=== PATIENT | male | born 1965 | race Caucasian/White ===

== ENCOUNTER → 2018-07-25 15:48 | Outpatient (CLI) | payer MEDICARE, SELFPAY ==
--- NOTE | 2018-07-25 | IMM_PTH ---
PATIENT: KRYSTLE SAMSON LOC: [facility] U#:[id number] AGE/SX: 59/M ROOM: RE07/25/[address]: Dr. Ky Mendosa MD : 1965 BED: DIS: SPEC #: [id number] RECD: 07/29/18 11:36 STATUS: JOHAN NIEOT #: [id number] RACHEAL: 07/25/18 00:[address]: Ky Mendosa DEPT: IMMUNOHISTOCHEMISTRY RECD BY: Rubia Chandler ENTERED: 07/29/18 11:36 SP TYPE: IMMUNO OTHR DR: Dr. Victor Hugo Pena MD Tissues: Stomach, NOS Procedures: H Pylori (initial) PHYSICIAN & INSTITUTION [place] [id number] SPECIMEN INFORMATION: Tissue Source: Gastric antrum/body biopsy Clinical Info: GERD Specimen Number: [id number] CPT code: 84572 METHODOLOGY: Deparaffinized sections of prefer/formalin-fixed tissue or PAP/DQ stained slides are incubated with monoclonal/polyclonal antibodies/oligonucleotide probes. Localization is made via biotin free immunoperoxidase method. Appropriate controls are performed and reacted as expected. Results on target cell population are indicated in the following table: RESULTS: ANTIBODY / CLONE RESULT H Pylori (polyclonal) negative These tests were developed and their performance characteristics determined by [facility]. They may not have been cleared or approved by the U.S. Food and Drug Administration. The FDA has determined that such clearance or approval is not necessary. INTERPRETATION: Gastric antrum/body, biopsy: Negative for Helicobacter pylori organisms. AM:ojzef 07/29/18
--- NOTE | 2018-07-25 07:59 | GASB_PTH ---
PATIENT: KRYSTLE SAMSON LOC: [facility] U#:[id number] AGE/SX: 59/M ROOM: RE07/25/[address]: Dr. Ky Mendosa MD : 1965 BED: DIS: SPEC #: [id number] RECD: 07/25/18 15:38 STATUS: JOHAN NIETO #: [id number] RACHEAL: 07/25/18 07:[address]: Ky Mendosa DEPT: SURGICAL PATHOLOGY RECD BY: Noe Quintana ENTERED: 07/28/18 11:36 SP TYPE: Gastric Bx OTHR DR: Dr. Victor Hugo Pena MD [facility] Tissues: Gastric mucous membrane Procedures: Surgery Specimen Level IV HEADER OPERATION: EGD with biopsies PRE-OP DIAGNOSIS: GERD TISSUE SUBMITTED: Gastric antrum and body biopsies, rule out gastritis MICROSCOPIC DIAGNOSIS Gastric antrum and body, biopsy: Mild chronic gastritis. See comment. AM:jozef 07/29/18 COMMENT Rare eosinophils are seen in glandular crypts. The significance of this is uncertain. The results of immunohistochemistry for Helicobacter pylori will be reported separately ([id number]). Case has been reviewed in consultation with Dr. Rosenthal who concurs with the above diagnosis. IDC:CE MICROSCOPIC DESCRIPTION Slides are reviewed. GROSS DESCRIPTION Received in fixative is one container labeled with the patient's name and designated gastric antrum. The specimen consists of two irregular fragments of light kaba soft tissue that in aggregate measure 0.5 x 0.5 x 0.1 cm. The specimen is totally submitted in one cassette. / AM:jozef 07/28/18 TC:3 CPT: 00195
== END ==
PROVIDERS: Family Provider Family Medicine; PCP Family Medicine; Referring Provider Internal Medicine Gastroenterology; Visit Provider Internal Medicine Gastroenterology
DX: K21.9 Gastro-esophageal reflux disease without esophagitis (principal)
CPT/HCPCS: 88305; 88342

== ENCOUNTER 2020-01-13 21:36 | Emergency (ER) | payer MEDICARE, SELFPAY ==
[2020-01-13 21:38] VITALS: PULSE 87; RESP 16; TEMP 36.7; O2SAT 98; BMI 40.1
--- NOTE | 2020-01-13 21:40 | CT_ITS ---
STUDY: CT BRAIN WITHOUT CONTRAST REASON FOR EXAM: Male, 54 years old. FOUND IN MIDDLE OF THE ROAD AFTER DRINKING 1 BOTTLE OF VODKA RADIATION DOSAGE (If Supplied By Facility): CTDIvol = ( 44.99 ) mGy, DLP = ( 729.24 ) mGycm TECHNIQUE: Transaxial CT imaging of the brain was performed without administration of intravenous contrast material. Individualized dose optimization techniques were used for this CT. COMPARISON: No relevant priors. FINDINGS: Normal soft tissue structures. Normal calvarium. Normal size ventricles and extra-axial spaces for the patient''s age. Normal white matter tracts of the cerebral hemispheres. Normal basal ganglia and thalami. Normal brainstem. Normal cerebellum. There is no intracranial hemorrhage. There are no findings of an acute ischemic infarction. Normal visualized paranasal sinuses. CT/Brain/Head without Contrast IMPRESSION: No acute intracranial process. Electronically Signed: Myra Daniels MD at 22:16 EDT Tel , Service support ,
--- NOTE | 2020-01-13 21:40 | CT_ITS ---
STUDY: CT CERVICAL SPINE WITHOUT CONTRAST REASON FOR EXAM: Male, 54 years old. FOUND IN MIDDLE OF THE ROAD AFTER DRINKING 1 BOTTLE OF VODKA RADIATION DOSAGE (If Supplied By Facility): CTDIvol = ( 29.61 ) mGy, DLP = ( 615.52 ) mGycm TECHNIQUE: High resolution transaxial imaging was performed without contrast material. Sagittal and coronal images were reconstructed. Individualized dose optimization techniques were used for this CT. COMPARISON: None FINDINGS: Motion artifact degrades anatomic detail. Normal craniovertebral junction. There are degenerative changes of the anterior atlantoaxial articulation. Normal odontoid process. There is straightening of the normal cervical lordosis. There is multilevel facet hypertrophy. C2-3: Normal endplates. Normal disc height and morphology. Normal central canal and intervertebral neuroforamina. C3-4: There is a posterior disc osteophyte and facet hypertrophy associated with narrowing of the left intervertebral neuroforamina. C4-5: There is a posterior disc osteophyte facet hypertrophy associated with stenosis of the central canal and narrowing of the right intervertebral neuroforamina. C5-6: There is a posterior disc osteophyte facet hypertrophy associated with stenosis of the central canal and bilateral narrowing of the intervertebral neuroforamina. C6-7: There is a posterior disc osteophyte and facet hypertrophy associated with stenosis of the central canal and narrowing of the left intervertebral neuroforamina. C7-T1: Normal endplates. Normal disc height and morphology. Normal central canal and intervertebral neuroforamina. Normal visualized soft tissue structures. CT/Spine Cervical without Contras IMPRESSION: Multilevel degenerative changes, as described above. Electronically Signed: Myra Daniels MD at 22:14 EDT Tel , Service support ,
--- NOTE | 2020-01-13 21:41 | ED.VIS.GEN ---
History of Present Illness Chief Complaint: Fall Informant: Patient, Family Assistant Onset: Today Narrative: Patient presents with EMS after a fall. Patient appears intoxicated admits to drinking a bottle of vodka today. EMS [place] Apparently some neighbors saw him fall and called EMS. Patient can answer some questions but does seem confused. He has no complaints for me on arrival to the emergency room. He is unable to tell me why he is in the emergency room. Past Medical History - Allergies and Home Meds Allergies/Adverse Reactions: Allergies No Known Allergies Allergy (Verified 01/13/20 21:43) Primary Care Physician: Victor Hugo Pena MD [Primary Care Provider] - Prior records reviewed: Yes Alcohol: Heavy Review of Systems General: Denies: Chills, Fever Eyes: Denies: Visual changes - bilaterally ENT: Denies: Bilateral ear pain Cardiovascular: Denies: Chest pain Respiratory: Denies: Dyspnea, Cough Gastrointestinal: Denies: Abdominal pain, Vomiting Musculoskeletal: Denies: Extremity Pain Neurological: Denies: Headache Physical Exam Vital Signs/Narrative: Vital Signs Temp Pulse Resp Pulse Ox 01/13/20 21:38 98.1 F 87 16 98 Inital Vital Signs reviewed: Yes General: Well nourished, Well developed Head: Normocephalic, - - Facial abrasions to the nasal bridge and left upper lip. He is a adentulous over the maxilla. Mandibular teeth are stable. ENT: Moist mucous membranes Neck: Supple Cardiovascular: Regular rate, Regular rhythm Respiratory: No distress, CTA bilaterally Abdomen: Soft, Nontender Skin: - - Facial abrasions as noted above Neurological: Alert, - - Patient knows his name and birthdate. He cannot tell me Social Security number or his address. He is moving all 4 extremities.. Negative for: Oriented x3 Psychological: Normal affect Diagnostic/Tx/Re-eval Impressions Brain CT 01/13/20 21:40 IMPRESSION: No acute intracranial process. Electronically Signed: Myra Daniels MD at 22:16 EDT Tel , Service support , Cervical Spine CT 01/13/20 21:40 IMPRESSION: Multilevel degenerative changes, as described above. Electronically Signed: Myra Daniels MD at 22:14 EDT Tel , Service support , 01/13/20 21:40 Brain/Head without Contrast [CT] Stat CT Cervical [Spine Cervical without Contras] [CT] Stat Laboratory Results 01/13/20 01/13/20 01/13/20 22:25 22:25 22:25 WBC 6.3 RBC 4.52 L Hgb 13.6 Hct 41.1 MCV 90.9 MCH 30.1 MCHC 33.1 RDW Std Deviation 42.3 RDW Coeff of Deshaun 12.9 Plt Count 186 MPV 10.1 Immature Gran % (Auto) 0.300 Neut % (Auto) 55.0 Lymph % (Auto) 33.9 [place] % (Auto) 8.4 Eos % (Auto) 1.9 Baso % (Auto) 0.5 Absolute Neuts (auto) 3.5 Absolute Lymphs (auto) 2.14 Nucleated RBC % 0 Sodium 142 Potassium 4.5 Chloride 107 Carbon Dioxide 27.0 Anion Gap 8 BUN 18 Creatinine 1.17 Estim Creat Clear Calc 71.34 Est GFR (MDRD) Af Amer 83 Est GFR (MDRD) Non-Af 69 BUN/Creatinine Ratio 15.4 Glucose 100 Calcium 8.6 Ethyl Alcohol 353.0 H* - Medical Decision Making Patient is observed on cardiac catheterization technologist. Facial wounds are cleansed. Once patient is clinically sober enough to be stable on his feet he will be discharged home with his ex- who is here at bedside. He will be signed out to oncoming physician for further observation. ED Disposition - Plan for ED Patient: Disposition: Home or Assisted Living Diagnosis: Fall, Alcohol intoxication Instructions: ED INTOXICATION Alcohol Referrals: Victor Hugo Pena MD [Primary Care Provider] - [facility] [STAFF PHYSICIAN] -
[2020-01-13 22:33] LABS: Absolute Lymphocyte Count 2.14 X10^3/uL (0.83-4.51); Absolute Neutrophil Count 3.5 X10^3/uL (2.0-7.7); Basophil# 0.03 X10^3/uL; Basophil% 0.5 % (0-1); Eosinophil# 0.12 X10^3/uL; Eosinophils% 1.9 % (0-5); Hematocrit 41.1 % (40-54); Hemoglobin 13.6 g/dL (13.0-16.5); Lymphocyte # 2.14 X10^3/ul (4.0); Lymphocyte % 33.9 % (19-41); Mean Corp Hgb Conc 33.1 g/dL (32-36); Mean Corpuscular Hgb 30.1 pg (27.0-32.0); Mean Corpuscular Volume 90.9 fL (80-94); Mean Platelet Vol. 10.1 fl (6.2-12.0); Monocyte# 0.53 X10^3/uL; Monocyte% 8.4 % (0-10); NRBC Flagged by Analyzer 0 % (0-5); Neutrophil # 3.47 X10^3/uL (2.7-7.7); Platelet Count 186 K/mm3 (150-450); RBC Distribution Width CV 12.9 % (11.6-14.6); RBC Distribution Width SD 42.3 fl (35.1-43.9); Red Blood Count 4.52 M/mm3 (4.6-6.2); White Blood Count 6.3 K/mm3 (4.4-11.0)
[2020-01-13 22:47] LABS: Anion Gap 8 (5-15); BUN 18 mg/dL (7-18); BUN/Creat Ratio 15.4 RATIO (10-20); Calcium,Total 8.6 mg/dL (8.5-10.1); Chloride 107 mmol/L (98-107); Creatinine, Serum 1.17 mg/dL (0.70-1.30); EST Glomerular Filtration Rate 69 mL/min (>60); Est Glom Filt Rate - Afr Amer 83 mL/min (>60); Estimated Creatinine Clearance 71.34 ml/min; Glucose 100 mg/dL (74-106); Potassium 4.5 mmol/L (3.5-5.1); Sodium Level 142 mmol/L (136-145)
[2020-01-14 00:58] VITALS: BP 136/89; PULSE 81; RESP 16; O2SAT 95
== END 2020-01-14 00:59 | disposition home or self-care (01) ==
PROVIDERS: Emergency Provider Emergency Medicine; PCP Family Medicine
DX: F10.129 Alcohol abuse with intoxication, unspecified (principal); S00.31XA Abrasion of nose, initial encounter; S00.511A Abrasion of lip, initial encounter; W19.XXXA Unspecified fall, initial encounter; Y93.9 Activity, unspecified; Y92.488 Other paved roadways as the place of occurrence of the external cause; Y99.9 Unspecified external cause status
CPT/HCPCS: 70450; 72125; 80048; 80320; 85025; 99285; A4216; G0480

== ENCOUNTER → 2020-03-24 11:05 | Outpatient (CLI) | payer MEDICARE, SELFPAY ==
--- NOTE | 2020-03-24 11:20 | EKG12_ITS ---
Test Reason : PRE OP Blood Pressure : / mmHG Vent. Rate : 091 BPM Atrial Rate : 091 BPM P-R Int : 140 ms QRS Dur : 102 ms QT Int : 382 ms P-R-T Axes : 046 -38 033 degrees QTc Int : 469 ms Normal sinus rhythm Left axis deviation Nonspecific ST and T wave abnormality Prolonged QT Abnormal ECG Confirmed by SETH KOO, ADILIA ([id number]), deputy editor in chief REGLA MEREDITH ([id number]) on 03/29/2020 8:06:18 AM Referred By: Almita Vincent Confirmed By:KEYSHA ANN MD
[2020-03-24 11:36] LABS: Absolute Lymphocyte Count 1.71 X10^3/uL (0.83-4.51); Absolute Neutrophil Count 4.2 X10^3/uL (2.0-7.7); Basophil# 0.02 X10^3/uL; Basophil% 0.3 % (0-1); Eosinophil# 0.13 X10^3/uL; Hematocrit 38.7 % (40-54); Hemoglobin 13.3 g/dL (13.0-16.5); Lymphocyte # 1.71 X10^3/ul (4.0); Lymphocyte % 25.8 % (19-41); Mean Corp Hgb Conc 34.4 g/dL (32-36); Mean Corpuscular Hgb 30.5 pg (27.0-32.0); Mean Corpuscular Volume 88.8 fL (80-94); Mean Platelet Vol. 10.7 fl (6.2-12.0); Monocyte# 0.51 X10^3/uL; Monocyte% 7.7 % (0-10); NRBC Flagged by Analyzer 0 % (0-5); Neutrophil # 4.24 X10^3/uL (2.7-7.7); Neutrophil % 63.7 % (47-70); Platelet Count 181 K/mm3 (150-450); RBC Distribution Width CV 12.4 % (11.6-14.6); RBC Distribution Width SD 40.6 fl (35.1-43.9); Red Blood Count 4.36 M/mm3 (4.6-6.2); White Blood Count 6.6 K/mm3 (4.4-11.0)
[2020-03-24 12:07] LABS: Anion Gap 3 (5-15); BUN 14 mg/dL (7-18); BUN/Creat Ratio 13.1 RATIO (10-20); Calcium,Total 8.7 mg/dL (8.5-10.1); Chloride 109 mmol/L (98-107); Creatinine, Serum 1.07 mg/dL (0.70-1.30); EST Glomerular Filtration Rate 76 mL/min (>60); Est Glom Filt Rate - Afr Amer 92 mL/min (>60); Glucose 115 mg/dL (74-106); Potassium 3.6 mmol/L (3.5-5.1); Sodium Level 140 mmol/L (136-145)
== END ==
PROVIDERS: PCP Family Medicine; Referring Provider Registered Nurse; Visit Provider Registered Nurse
DX: Z11.59 Encounter for screening for other viral diseases (principal)
CPT/HCPCS: 36415; 80048; 85025; 87635; 93005; C9803; U0003

== ENCOUNTER 2021-06-01 06:20 | Day surgery (SDC) | payer MEDICARE, SELFPAY ==
[2021-06-01 06:40] VITALS: BP 139/88; PULSE 82; RESP 18; TEMP 35.8; O2SAT 100; BMI 38.3
[2021-06-01] MEDS: Lactated Ringers 1,000 ML 15 ML IV (06:52)
--- NOTE | 2021-06-01 07:25 | PCM.HP.BLA ---
History and Physical Date of Admission: 06/01/21 Date of Service: 05/18/21 MR#:[id number]:[id number]: KRYSTLE SAMSON #:[id number]:1965 Provider:Dr. Paul Scott MDAge/Sex: 55/M [facility] Vital Signs 05/18/21 13:40 Height 5 ft 9 in Weight: 260 lb 4 oz BMI 38.4 BP 155/89 H Blood Pressure Location Rt brachial Position Sitting Respiration 18 Pulse 90 Pulse Source NIBP Temp 98.7 F Temp Source Temporal Pulse Oximetry (%) 98 Oxygen Delivery Method room air Intake Visit Reasons: Discuss upper/lower scope Chief Complaint: discuss EGD/ c-scope Gas Station Manager Required: No Is patient in pain?: No Allergies No Known Allergies Allergy (Verified 05/18/21 13:41) Medications amlodipine 10 mg tablet tablet PO 05/18/21 [History Confirmed 05/18/21] famotidine 20 mg tablet 20 mg PO DAILY PRN 05/18/21 [History Confirmed 05/18/21] levothyroxine 100 mcg tablet tablet PO 05/18/21 [History Confirmed 05/18/21] lorazepam 0.5 mg tablet 0.5 mg PO QHS tab 05/18/21 [History Confirmed 05/18/21] losartan 100 mg tablet 100 mg PO BID tab 05/18/21 [History Confirmed 05/18/21] losartan 25 mg tablet ea PO 05/18/21 [History Confirmed 05/18/21] meloxicam 15 mg tablet ea PO 05/18/21 [History Confirmed 05/18/21] rosuvastatin 5 mg tablet ea PO 05/18/21 [History Confirmed 05/18/21] trazodone 50 mg tablet tablet PO 05/18/21 [History Confirmed 05/18/21] zolpidem 5 mg tablet tablet PO 05/18/21 [History Confirmed 05/18/21] PFS Medical History (Updated 05/18/21 @ 15:[address] Paul Scott MD) Anxiety and depression Back pain Bipolar 1 disorder Diverticulosis DVT (deep venous thrombosis) GERD (gastroesophageal reflux disease) Hemorrhoid Hiatal hernia History of gout HTN (hypertension) Hyperlipidemia Hypothyroidism Osteoarthritis Surgical History (Updated 05/18/21 @ 13:43 by Nadya Aguayo) History of ankle surgery History of colonoscopy (~2019) History of esophagogastroduodenoscopy (EGD) History of shoulder surgery Family History (Updated 05/18/21 @ 13:36 by Nadya Aguayo) Father Colon cancer Cancer skin Diabetes Social History (Updated 05/18/21 @ 13:36 by Nadya Aguayo) Smoking Status: Former smoker HPI HPI HPI: KRYSTLE SAMSON, is a 55 M who presents to the office today for need to schedule diagnostic EGD and colonoscopy secondary to personal history of gastroesophageal reflux disease, possible Estrada's esophagus, personal history of colon polyps, and a familial history of colon cancer. Patient has had prior colonoscopy the date of this is in some dispute as records show Dr. Mendosa scope the patient in August 2018 but Mr. Samson is adamant that it has been at least 5 years. He states that a EGD and colonoscopy were done at separate times but within the same year. The results of prior scope were: Diverticulosis and small internal hemorrhoids but no polyps. Recommended interval for follow-up was 5 years. Patient has no personal history of colon cancer, inflammatory bowel disease, or diverticulitis. They describe their bowel habits as fairly regular occurring every other day. Patient states that he takes a stool softener every other day and if he is struggling to have a bowel movement we will add a suppository. They have spend roughly 10 minutes on the toilet with only occasional significant straining. They do not regularly take fiber supplements (patient details that he used to take fiber supplements but found no benefit because he has a difficult time taking adequate fluid as he does not feel the physical need to drink. Patient has a family history of colon cancer in his father. The patient's weight is stable. Patient has a history of hemorrhoid surgery approximately 10 years ago where the hemorrhoids were stapled. His only other abdominal surgery was an appendectomy in 2011. Regarding his history of GERD, Mr. Samson states that he has made lifestyle modifications to include eating smaller meals and taking famotidine around the time that he eats a known food triggers such as tomato sauce. However, he has not excluded any foods outright. He states he previously was on omeprazole and a generic form of Protonix (prior to this he states he was on lots of Tums and baking soda), but does not take anything regularly because he is not a medicine kailey. He continues to experience frequent bouts of heartburn and this is particularly problematic when he lies flat. He feels a burning sensation and then a deepening of his voice. He was diagnosed with gastroesophageal reflux disease at age 15 when he recalls first noticing blood with vomiting. At that time he believes he was told he had Estrada's esophagitis but denies any recurrent surveillance. He states that it is now been 1 year since he noticed any such blood with vomiting. ROS General General: Yes weight change; No appetite, fatigue, colon cancer, breast cancer or weakness HEENT HEENT: No difficulty swallowing, eye injury, eye surgery, swollen glands or hoarseness Endo Endocrine: No thyroid disease, diabetes mellitus, thyroid cancer, Hair loss, heat intolerance or cold intolerance Musc Musculoskeletal: Yes back problems, arthritis and gout; No rheumatoid arthritis or joint pain Cardio Cardiovascular: Yes high blood pressure; No murmur, pacemaker, heart disease, atrial fibrillation, heart attack, heart stent, palpitations, shortness of breat with exertion or chest pain Psych Psychiatric: Yes depression and anxiety; No hearing voices Resp Respiratory: No shortness of breath, No sleep apnea, No cough, No COPD, No asthma, No emphysema and No wheezing Gastro Gastrointestinal: No abdominal pain, Yes nausea or vomiting, Yes diarrhea, Yes constipation, No blood in stool, Yes acid reflux, Yes hemorrhoids, No ulcers, No gallbladder problem and No black,tarry stools [place] Hematologic: No blood thinners, No blood disorders, No bleeding, No anemia and Yes blood clots Neuro Neurologic: No weakness Exam Const General: cooperative and anxious Orientation: alert, awake and oriented x3 Resp Effort & Inspection: normal respiratory effort Auscultation: no rales, no rhonchi and no wheezes Cardio Rate: regular rate Rhythm: regular rhythm Heart Sounds: S1 normal and S2 normal GI Inspection: obesity and striae Palpation: soft, no hernias and nontender Extrem Other: Numerous well?healed cuts across dorsal aspect of left forearm Assessment and Plan Assessment and Plan (1) Colorectal polyps: Status: Acute Comment: Is a 55-year-old male with a personal and family history of colon polyps and colon cancer, respectively. He believes that he is due for a 5-year interval surveillance colonoscopy. 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 Still patient describes occasional dark stools and with his family history (father) of colon cancer it would be best to err on the side of repeating this investigation. Plan - Dr. Paul Scott MD: Plan for repeat colonoscopy under local MAC on first mutually available date with a 2?day prep (as patient and his spouse gives a history of difficulty with prior prep). (2) Family history of colon cancer in father: Status: Acute Comment: 55-year-old male who is on short?interval surveillance colonoscopy for personal history of polyps and above family history. Actual interval since last scope was in dispute, but would favor erring on the side of shorter interval given his significant history and reports of possible melena. Plan - Dr. Paul Scott MD: Plan for repeat colonoscopy under local MAC on first mutually available date with a 2?day prep (as patient and his spouse gives a history of difficulty with prior prep). (3) Diverticulosis: Status: Inactive Comment: Patient with diverticulosis noted on last colonoscopy report. He reports historically taking Metamucil, but discontinued this because his water intake was inadequate to realize any difference in his bowel habits. We covered in detail the importance of resuming increased dietary fiber versus supplementation as well as deliberate hydration. Plan - Dr. Paul Scott MD: Fiber supplementation with deliberate hydration (4) GERD (gastroesophageal reflux disease): Status: Inactive Qualifiers: Esophagitis presence: esophagitis presence not specified Qualified Code(s): K21.9 - Gastro-esophageal reflux disease without esophagitis Comment: This is a 55-year-old male who states that he has been diagnosed with gastroesophageal reflux disease for the past 40 years. He is not on any chronic PPI but only takes H2 michelle as needed. Patient believes his last upper endoscopic exam was 5 years ago. Unfortunately is unable to recall any details regarding the findings of the procedure. He also reports a possible history of Estrada's esophagus, but denies any history of routine surveillance. Plan - Dr. Paul Scott MD: ?I have recommended immediate initiation of omeprazole therapy 20 mg daily ?Plan for EGD with biopsy under local MAC at the same time as colonoscopy; look to obtain results of any prior EGD in the interim I have re-examined the patient. There are no clinical changes since date of exam. Patient states that his prep went okay. He is still having some sediment but states he overall character is very clear yellow for the output coming out. Therefore, we will plan to proceed with EGD and colonoscopy under local MAC today.
--- NOTE | 2021-06-01 07:30 | IMM_PTH ---
PATIENT: KRYSTLE SAMSON LOC: EN U#:[id number] AGE/SX: 55/M ROOM: RE06/01/[address]: Dr. Paul Scott MD : 1965 BED: DIS: 06/01/2021 SPEC #: [id number] RECD: 06/01/21 14:07 STATUS: JOHAN RERosalina #: [id number] RACHEAL: 06/01/21 07:[address]: Paul Scott DEPT: IMMUNOHISTOCHEMISTRY RECD BY: Rubia Chandler ENTERED: 06/01/21 14:08 SP TYPE: IMMUNO OTHR DR: Dr. Victor Hugo Pena MD Tissues: A - Stomach, NOS B - Gastric mucous membrane Procedures: H Pylori (initial) P53 (initial) KI-67 (add) Comments: @ Specimen number changed from [id number] to [id number] @ on 06/02/21 at 1130 by RGOOD. PHYSICIAN & INSTITUTION [place] [id number] SPECIMEN INFORMATION: Tissue Source: A ? Gastric antrum, B ? GE junction biopsy Clinical Info: Colorectal polyps, diverticulosis, GERD Specimen Number: [id number] A & B CPT code: 69809 x2, 45742 METHODOLOGY: Deparaffinized sections of prefer/formalin-fixed tissue or PAP/DQ stained slides are incubated with monoclonal/polyclonal antibodies/oligonucleotide probes. Localization is made via biotin free immunoperoxidase method. Appropriate controls are performed and reacted as expected. Results on target cell population are indicated in the following table: RESULTS: ANTIBODY / CLONE RESULT Block A H Pylori (polyclonal) negative Block B P53 (DO-7) negative Ki-67 (30-9) positive, very low These tests were developed and their performance characteristics determined by [facility]. They may not have been cleared or approved by the U.S. Food and Drug Administration. The FDA has determined that such clearance or approval is not necessary. The above immunohistochemical/dualISH markers are ordered and reviewed by the pathologist. INTERPRETATION: A. Gastric antrum, biopsy: Negative for Helicobacter pylori organisms. B. GE junction, biopsy: Negative for dysplasia. SJ:jozef 06/02/2021
--- NOTE | 2021-06-01 07:30 | EGD_PTH ---
PATIENT: KRYSTLE SAMSON LOC: EN U#:[id number] AGE/SX: 55/M ROOM: RE06/01/[address]: Dr. Paul Scott MD : 1965 BED: DIS: 06/01/2021 SPEC #: [id number] RECD: 06/01/21 11:29 STATUS: JOHAN RACHELLRosalina #: [id number] RACHEAL: 06/01/21 07:[address]: Paul Scott DEPT: SURGICAL PATHOLOGY RECD BY: Michelle Villasenor ENTERED: 06/01/21 12:41 SP TYPE: EGD BIOPSY OTHR DR: Dr. Victor Hugo Pena MD Tissues: A - Gastric mucous membrane B - Stomach, NOS C - Descending colon Procedures: Special Stain Group II Surgery Specimen Level IV Alcian Blue/PAS (control) HEADER OPERATION: Colonoscopy, EGD ([facility] [place]) PRE-OP DIAGNOSIS: Colorectal polyps, diverticulosis, GERD TISSUE SUBMITTED: A ? Gastric antrum biopsy for H. pylori and path, B ? GE junction biopsy, C ? Descending colon polyps MICROSCOPIC DIAGNOSIS A. Gastric antrum, biopsy: Mild gastritis. See microscopic description and comment. B. GE junction, biopsy: Fragments of gastroesophageal mucosa with intestinal metaplasia (goblet cell metaplasia) consistent with Estrada?s esophagus. Mild chronic inflammation. Negative for dysplasia. See comment. C. Descending colon polyp, biopsy: Consistent with hyperplastic polyp with marked cautery artifact. SJ:rg 06/02/2021 COMMENT A. The results of immunohistochemistry for Helicobacter pylori will be reported separately ([id number]). B. Alcian blue/PAS stain with matched control is used in the evaluation of the specimen. Immunohistochemistry ([id number]) for P53 and Ki-67 will be performed and results will be reported separately. Clinical correlation and appropriate follow up are necessary. MICROSCOPIC DESCRIPTION Slides are reviewed. A. The specimen shows fragments of gastric mucosa with chronic inflammatory cell infiltrates in the lamina propria consisting of lymphocytes and plasma cells, consistent with mild chronic gastritis. GROSS DESCRIPTION A - Received in fixative is one container labeled with the patient's name and designated gastric antrum biopsy. The specimen consists of multiple irregular fragments of light kaba soft tissue that in aggregate measure 0.6 x 0.2 x 0.1 cm. The specimen is totally submitted in one cassette. B - Received in fixative is one container labeled with the patient's name and designated GE junction biopsy. The specimen consists of two irregular fragments of light kaba soft tissue that in aggregate measure 0.6 x 0.3 x 0.1 cm. The specimen is totally submitted in one cassette. C - Received in fixative is one container labeled with the patient's name and designated descending colon polyps. The specimen consists of one irregular fragment of light kaba soft tissue that measures 0.2 x 0.2 x 0.1 cm. The specimen is totally submitted in one cassette. / SJ:rg 06/01/21 TC:3 CPT: 23197 x3, 14503
[2021-06-01 09:02] VITALS: BP 139/88; BP 150/105; PULSE 78; RESP 16; TEMP 36.1; O2SAT 97
--- NOTE | 2021-06-01 09:06 | OP.EGD_ITS ---
Patient Name: Johann Sears Procedure Date: 06/01/2021 7:30 AM Date of : 1965 Age: 55 Procedure: Upper GI endoscopy Indications: Gastro-esophageal reflux disease, Exclusion of Estrada's esophagus Providers: Paul Scott MD Referring MD: Paul Scott MD Medicines: See the Anesthesia note for documentation of the administered medications Patient Profile: Patient has symptoms of chronic heartburn. Questionable history of Estrada's Refer to note in patient chart for documentation of history and physical. Complications: No immediate complications. Estimated blood loss: Minimal. Procedure: Pre-Anesthesia Assessment: - The anesthesia plan was to use moderate sedation/analgesia (conscious sedation). - The heart rate, respiratory rate, oxygen saturations, blood pressure, adequacy of pulmonary ventilation, and response to care were monitored throughout the procedure. After obtaining informed consent, the endoscope was passed under direct vision. Throughout the procedure, the patient's blood pressure, pulse, and oxygen saturations were monitored continuously. The Endoscope was introduced through the mouth, and advanced to the second part of duodenum. The upper GI endoscopy was accomplished without difficulty. The patient tolerated the procedure well. Scope In: 7:43:09 AM Scope Out: 7:54:36 AM Total Procedure Duration Time 0 hours 11 minutes 27 seconds Findings: The second portion of the duodenum was normal. No biopsies or other specimens were collected for this exam. Patchy mild inflammation characterized by erythema was found in the gastric antrum. Biopsies were taken with a cold forceps for histology. Estimated blood loss was minimal. The Z-line was regular and was found 40 cm from the incisors. Biopsies were taken with a cold forceps for histology. Estimated blood loss was minimal. A medium-sized hiatal hernia was present. Impression: - Normal second portion of the duodenum. No specimens collected. - Gastritis. Biopsied. - Z-line regular, 40 cm from the incisors. Biopsied. - Medium-sized hiatal hernia. Recommendation: - Discharge patient to home (via cart). - Resume regular diet today. - Await pathology results. - Continue present medications. Procedure Code(s): --- Professional --- 48299, Esophagogastroduodenoscopy, flexible, transoral; with biopsy, single or multiple Diagnosis Code(s): --- Professional --- K29.70, Gastritis, unspecified, without bleeding K44.9, Diaphragmatic hernia without obstruction or gangrene K21.9, Gastro-esophageal reflux disease without esophagitis CPT copyright 2017 [employer]. All rights reserved. The codes documented in this report are preliminary and upon risk compliance analyst review may be revised to meet current compliance requirements. Paul Scott MD 06/01/2021 9:05:46 AM This report has been signed electronically. Number of Addenda: 0 Note Initiated On: 06/01/2021 7:30 AM
[2021-06-01 09:07] VITALS: BP 108/80; BP 139/88; PULSE 77; RESP 16; O2SAT 98
--- NOTE | 2021-06-01 09:07 | OP.CCLET_ITS ---
06/01/2021 Victor Hugo Pena Re : Upper GI endoscopy procedure for Johann Sears Dear Becky This procedure was performed on May. My impressions and recommendations are as follows: Impressions : - Normal second portion of the duodenum. No specimens collected. - Gastritis. Biopsied. - Z-line regular, 40 cm from the incisors. Biopsied. - Medium-sized hiatal hernia. Recommendations : - Discharge patient to home (via cart). - Resume regular diet today. - Await pathology results. - Continue present medications. My findings are described in the full procedure note, which is enclosed. If I can be of further assistance, please feel free to contact me at Doctor phone number(s): , Work: . Sincerely, Paul Scott MD 06/01/2021 9:05:46 AM This report has been signed electronically.
[2021-06-01 09:12] VITALS: BP 136/73; BP 139/88; PULSE 73; RESP 16; O2SAT 99
--- NOTE | 2021-06-01 09:13 | OP.COLON_ITS ---
Patient Name: Johann Sears Procedure Date: 06/01/2021 7:57 AM Date of : 1965 Age: 55 Procedure: Colonoscopy Indications: Screening in patient at increased risk: Family history of 1st-degree relative with colorectal cancer, Surveillance: Personal history of adenomatous polyps on last colonoscopy 3 years ago Providers: Paul Scott MD Referring MD: Paul Scott MD Medicines: See the Anesthesia note for documentation of the administered medications Patient Profile: Patient has symptoms of chronic heartburn. Questionable history of Estrada's Refer to note in patient chart for documentation of history and physical. Last Colonoscopy: Two tubular adenomas were found on the previous colonoscopy. Refer to note in patient chart for documentation of history and physical. Complications: No immediate complications. Estimated blood loss: Minimal. Procedure: Pre-Anesthesia Assessment: - The anesthesia plan was to use moderate sedation/analgesia (conscious sedation). - The heart rate, respiratory rate, oxygen saturations, blood pressure, adequacy of pulmonary ventilation, and response to care were monitored throughout the procedure. - The heart rate, respiratory rate, oxygen saturations, blood pressure, adequacy of pulmonary ventilation, and response to care were monitored throughout the procedure. After I obtained informed consent, the scope was passed under direct vision. Throughout the procedure, the patient's blood pressure, pulse, and oxygen saturations were monitored continuously. The adult colonoscope was introduced through the anus and advanced to the cecum, identified by the ileocecal valve. The colonoscopy was technically difficult and complex due to the patient's body habitus. Successful completion of the procedure was aided by applying abdominal pressure. Scope In: 7:59:17 AM Scope Withdrawal Time 0 hours 37 minutes 44 seconds Scope Out: 8:56:18 AM Total Procedure Duration Time 0 hours 57 minutes 1 second Findings: A 8 mm polyp was found in the descending colon. The polyp was semi-pedunculated. The polyp was removed with a hot snare. Polyp resection was incomplete, and the resected tissue was partially retrieved. Estimated blood loss was minimal. Multiple large-mouthed diverticula were found in the sigmoid colon. No biopsies or other specimens were collected for this exam. The retroflexed view of the distal rectum and anal verge was normal and showed no anal or rectal abnormalities. Impression: - One 8 mm polyp in the descending colon, removed with a hot snare. Polyp resection was incomplete, and the resected tissue was partially retrieved. - Diverticulosis in the sigmoid colon. No specimens collected. - The distal rectum and anal verge are normal on retroflexion view. Recommendation: - Discharge patient to home (via cart). - Discharge patient to home (via wheelchair). - Resume regular diet today. - Continue present medications. - Await pathology results. - Repeat colonoscopy is recommended for surveillance after piecemeal polypectomy. The colonoscopy date will be determined after pathology results from today's exam become available for review. Procedure Code(s): --- Professional --- 35898, Colonoscopy, flexible; with removal of tumor(s), polyp(s), or other lesion(s) by snare technique Diagnosis Code(s): --- Professional --- Z80.0, Family history of malignant neoplasm of digestive organs Z86.010, Personal history of colonic polyps D12.4, Benign neoplasm of descending colon K57.30, Diverticulosis of large intestine without perforation or abscess without bleeding CPT copyright 2017 [employer]. All rights reserved. The codes documented in this report are preliminary and upon associate brand manager review may be revised to meet current compliance requirements. Paul Scott MD 06/01/2021 9:12:52 AM This report has been signed electronically. Number of Addenda: 0 Note Initiated On: 06/01/2021 7:57 AM
--- NOTE | 2021-06-01 09:14 | OP.CCLET_ITS ---
06/01/2021 Victor Hugo Pena Re : Colonoscopy procedure for Johann Sears Dear Becky This procedure was performed on May. My impressions and recommendations are as follows: Impressions : - One 8 mm polyp in the descending colon, removed with a hot snare. Polyp resection was incomplete, and the resected tissue was partially retrieved. - Diverticulosis in the sigmoid colon. No specimens collected. - The distal rectum and anal verge are normal on retroflexion view. Recommendations : - Discharge patient to home (via cart). - Discharge patient to home (via wheelchair). - Resume regular diet today. - Continue present medications. - Await pathology results. - Repeat colonoscopy is recommended for surveillance after piecemeal polypectomy. The colonoscopy date will be determined after pathology results from today's exam become available for review. My findings are described in the full procedure note, which is enclosed. If I can be of further assistance, please feel free to contact me at Doctor phone number(s): , Work: . Sincerely, Paul Scott MD 06/01/2021 9:12:52 AM This report has been signed electronically.
[2021-06-01 09:17] VITALS: BP 128/86; BP 139/88; PULSE 76; RESP 16; TEMP 36.2; O2SAT 100
[2021-06-01 09:34] VITALS: BP 139/88
== END 2021-06-01 09:38 ==
LOC: EN 06:22 → AC 06:22
PROVIDERS: PCP Family Medicine; Referring Provider Surgery; Visit Provider Surgery
PROC: 0DJD8ZZ Inspection of Lower Intestinal Tract, Via Natural or Artificial Opening Endoscopic (ICD-10-PCS; CPT 45378; principal; 2021-06-01 07:25)
DX: Z12.11 Encounter for screening for malignant neoplasm of colon (principal); D12.4 Benign neoplasm of descending colon; K44.9 Diaphragmatic hernia without obstruction or gangrene; K29.70 Gastritis, unspecified, without bleeding; K57.30 Diverticulosis of large intestine without perforation or abscess without bleeding; K21.9 Gastro-esophageal reflux disease without esophagitis; Z20.822 Contact with and (suspected) exposure to COVID-19; I10 Essential (primary) hypertension; M19.90 Unspecified osteoarthritis, unspecified site; F31.9 Bipolar disorder, unspecified; F41.9 Anxiety disorder, unspecified; Z79.1 Long term (current) use of non-steroidal anti-inflammatories (NSAID); Z79.890 Hormone replacement therapy; Z79.899 Other long term (current) drug therapy; Z86.010 Personal history of colon polyps; Z86.718 Personal history of other venous thrombosis and embolism; Z87.891 Personal history of nicotine dependence; Z80.0 Family history of malignant neoplasm of digestive organs
CPT/HCPCS: 43239; 45385; 87426; 88305; 88313; 88341; 88342; C9803; J7120; J2405

== ENCOUNTER → 2022-01-04 | Outpatient (CLI) | payer MEDICARE, SELFPAY ==
--- NOTE | 2022-01-04 08:26 | RAD_ITS ---
STUDY: AIR CONTRAST UPPER GI SERIES and esophagram. REASON FOR EXAM: Male, 56 years old. K31.84 - Gastroparesis FLUOROSCOPY TIME (if supplied): (1 minute and 6 seconds) minutes/seconds. 20 one images were obtained. TECHNIQUE: SINGLE CONTRAST AND AIR CONTRAST FLUOROSCOPIC IMAGES. COMPARISON: None. FINDINGS: The cervical esophagus demonstrates normal motility without aspiration. There is no stricture or extrinsic mass effect. No intraluminal polypoid mass is identified. The thoracic esophagus distends well without stricture or mucosal fold thickening. No mucosal ulcerations are identified. There is no extrinsic mass effect. There are no diverticula. No hiatal hernia or gastroesophageal reflux was identified. The stomach distends well without mucosal fold thickening or mucosal ulceration. There is no intraluminal mass. The duodenal bulb is freely distensible without deformity or ulceration. The duodenal sweep is normal in position and caliber. RAD/Upper GI w/BA Swallow IMPRESSION: Normal air-contrast esophagram and upper GI series. Electronically Signed: Carlo Lyons MD at 10:00 EDT ,
== END | disposition home or self-care (01) ==
LOC: RAD 08:23
PROVIDERS: PCP Family Medicine; Referring Provider Surgery; Visit Provider Surgery
DX: K31.84 Gastroparesis (principal); K21.9 Gastro-esophageal reflux disease without esophagitis
CPT/HCPCS: 74246

== ENCOUNTER 2022-06-20 08:58 | Day surgery (SDC) | payer MEDICARE, SELFPAY ==
--- NOTE | 2022-06-20 | GASB_PTH ---
PATIENT: KRYSTLE SAMSON LOC: EN U#:[id number] AGE/SX: 56/M ROOM: RE06/20/[address]: Dr. Daquan Arshad DO : 1965 BED: DIS: 06/20/2022 SPEC #: [id number] RECD: 06/20/22 11:48 STATUS: JOHAN EMILIA #: [id number] RACHEAL: 06/20/22 00:[address]: Daquan Arshad DEPT: SURGICAL PATHOLOGY RECD BY: Thierno Bowen ENTERED: 06/20/22 11:48 SP TYPE: Gastric Bx GINO DR: Dr. Victor Hugo Pena MD Tissues: A - Gastric mucous membrane B - Esophageal mucous membrane Procedures: Surgery Specimen Level IV HEADER OPERATION: E[place] ([facility] [place] with PH probe with biopsies PRE-OP DIAGNOSIS: GERD, regurgitation, chronic constipation TISSUE SUBMITTED: A ? Gastric antrum biopsy for H. pylori and path, B ? Distal esophagus biopsy MICROSCOPIC DIAGNOSIS A. Gastric antrum, biopsy: Chronic gastritis. See comment. B. Distal esophagus, biopsy: Gastroesophageal junctional mucosa with chronic inflammation. 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 No evidence of dysplasia. See comment. AM:jozef 06/21/2022 COMMENT A. The results of immunohistochemistry for Helicobacter pylori will be reported separately ([id number]). B. Immunohistochemistry ([id number]) for P53 and Ki-67 will be performed and results will be reported separately. Alcian blue/PAS stain with matched control supports the above diagnosis. MICROSCOPIC DESCRIPTION Slides are reviewed. GROSS DESCRIPTION A - Received in fixative is one container labeled with the patient's name and designated gastric antrum biopsy. The specimen consists of two irregular fragments of light kaba soft tissue that in aggregate measure 0.8 x o.7 x 0.1 cm. The specimen is totally submitted in one cassette. B - Received in fixative is one container labeled with the patient's name and designated distal esophagus biopsy. The specimen consists of multiple irregular fragments of light kaba soft tissue that in aggregate measure 1 x 1 x 0.1 cm. The specimen is totally submitted in one cassette. / AM:jozef 06/20/2022 TC:3 CPT: 58283 x2, 92515
--- NOTE | 2022-06-20 09:21 | PCM.HP.BLA ---
History and Physical Date of Admission: 06/20/22 SHAYNA SAMSON, is a 56 M who presents to the office today for acid reflux since age 15 which has significantly worsened over the years to the point where he is absolutely miserable.? He worries about the possibility of cancer due to family history of multiple different cancers.? He has been evaluated by general surgeon Dr. Scott who performed EGD and colonoscopy in May 2021; he found a medium size hiatal hernia, mild gastritis on biopsy, Estrada's esophagus but negative for dysplasia; in the colon there were multiple large mouthed diverticula, hyperplastic polyp from the descending colon.? Dr. Scott prescribed omeprazole for GERD and Estrada's however patient discontinued it due to perceived lack of efficacy.? More recently he has been taking pantoprazole 20 mg daily but does not find it effective either. Mr. Samson previously saw an outside trade union official.? Prior gastric emptying study was interpreted as normal.? Patient was tried on metoclopramide by that trade union official without relief of symptoms.? Patient is potentially interested in fundoplication as a last resort.? He and his just hope to find some relief for his very bothersome symptoms.? He is only able to eat small amounts at a time and cannot drink much fluids when he eats or he has significant acid reflux.? He reports acid is refluxing, and that he does not notice any bile.? If he eats too much at once then he will have significant epigastric and retrosternal pain for about 8 hours, then he vomits and gets some relief, he sees undigested food at that time.? He does note that if he has a good bowel movement then it feels like his stomach immediately empties.? He does tend to have significant constipation.? He feels if he could drink more fluids then he would have less constipation, but he cannot tolerate a larger volume of fluids.? Unable to drink enough water in order to take Metamucil.? He is having to use a glycerin suppository of majority of days in order to have a bowel movement.? He quit drinking any soda pop.? He limits alcohol due to the epigastric pain causes.? He almost always has retrosternal burning pain.? He denies any difficulty swallowing foods or liquids or pills.? No relief of his acid reflux with irfs-uec-taylnmi medications such as Pepto-Bismol, Tuyet-Dorena or Tums.? He takes up to 8 OTC famotidine but only gets minimal relief with that.? Worse symptoms when lying down. 01/04/22 Upper GI w/BA Swallow IMPRESSION: Normal air-contrast esophagram and upper GI series. ROS Const Constitutional: No fatigue ENT ENT: No difficulty swallowing Gastro GI: Positive for abdominal pain, constipation and heartburn; No belching, bloating, change in bowel habits, change in stool character, coffee ground emesis, cramping, diarrhea, difficulty swallowing, feeling full early, excessive flatus, incontinent of stools, Vomiting blood/hematemesis, Blood in stool, loose stools, Black,tarry stools, nausea/dyspepsia, pain with swallowing, vomiting or other Musc Musculoskeletal: Positive for joint pain Skin Skin: No yellowing of the eye or itchy eyes Psych Psychiatric: Positive for anxiety and Positive for depression Endo Endocrine: No fatigue Aller/Imm Allergy/Immunologic: No itchy eyes Duane/Lymp Hematologic/Lymphatic: No easy bleeding or easy bruising Exam Const General: cooperative and anxious Nutritional Appearance: obese Orientation: alert, awake and oriented x3 HENMT Head: normal to inspection Eyes Sclera: sclerae normal Resp Effort & Inspection: normal respiratory effort GI Inspection: obesity Palpation: soft, no hepatosplenomegaly, no masses and nontender Skin General: no jaundice Neuro Gait: normal gait Quality Reporting Tobacco Screening ([facility] 138) Smoking Status: Former smoker Assessment and Plan Assessment and Plan (1) GERD (gastroesophageal reflux disease): ?Status:?Acute ?Plan: 56-year-old male with severe acid reflux which is refractory to PPI therapy.? He has regurgitation of food, prior normal gastric emptying study, reports good stomach emptying if he is not constipated, but has chronic constipation.? We will get him scheduled for an EGD with Boo pH testing off PPI x7 days with Dr. Arshad.? He will increase pantoprazole to 40 mg twice daily.? If we can get his bowels moving better then we will hopefully see improved gastric emptying as well as less acid reflux; to that and I provided him with samples of Linzess to 90 mcg every morning before breakfast, cautioned about possible diarrhea initially.? He or his will let me know how he does on the Linzess.? We will order a gastric emptying study.? He will have follow-up after his EGD to review biopsy results.? We discussed his symptoms in detail, reviewed medical drawings online to help explain.? Assured him we will work closely with general surgeon Dr. Scott in case it looks like fundoplication would be indicated.? I believe we were able to help allay some of his anxiety at today's visit. (2) Regurgitation of food: ?Status:?Acute ?Plan: As above (3) Chronic constipation: ?Status:?Chronic ?Plan: As above ? ? ? Medications: New pantoprazole 40 mg? PO BID 60 tabs 5RF ? ? Discontinued pantoprazole ?? Discontinued Reason:? Pt no longer taking 20 mg? PO DAILY 30 tabs 1RF K21.9 - Gastro-esophageal reflux disease without esophagitis ? I have examined the patient and the H&P has been reviewed. There are no clinical changes since date of exam.
[2022-06-20] MEDS: Lactated Ringers 1,000 ML 15 ML IV (09:33)
[2022-06-20 09:34] VITALS: BP 124/78; PULSE 90; RESP 18; TEMP 37.2; O2SAT 98; BMI 38.9
--- NOTE | 2022-06-20 10:15 | IMM_PTH ---
PATIENT: KRYSTLE SAMSON LOC: EN U#:[id number] AGE/SX: 56/M ROOM: RE06/20/[address]: Dr. Daquan Arshad DO : 1965 BED: DIS: 06/20/2022 SPEC #: [id number] RECD: 06/20/22 12:39 STATUS: JOHAN RERosalina #: [id number] RACHEAL: 06/20/22 10:[address]: Daquan Arshad DEPT: IMMUNOHISTOCHEMISTRY RECD BY: Rubia Chandler ENTERED: 06/20/22 12:39 SP TYPE: IMMUNO OTHR DR: Dr. Victor Hugo Pena MD Tissues: A - Stomach, NOS B - Esophagus, NOS Procedures: H Pylori (initial) P53 (initial) KI-67 (add) PHYSICIAN & INSTITUTION [place] [id number] SPECIMEN INFORMATION: Tissue Source: A ? Gastric antrum, B ? Distal esophagus Clinical Info: GERD, regurgitation, chronic constipation Specimen Number: [id number] A & B CPT code: 24512 x2, 33243 METHODOLOGY: Deparaffinized sections of prefer/formalin-fixed tissue or PAP/DQ stained slides are incubated with monoclonal/polyclonal antibodies/oligonucleotide probes. Localization is made via biotin free immunoperoxidase method. Appropriate controls are performed and reacted as expected. Results on target cell population are indicated in the following table: RESULTS: ANTIBODY / CLONE RESULT Block A H Pylori (polyclonal) negative Block B P53 (DO-7) negative Ki-67 (30-9) positive, low These tests were developed and their performance characteristics determined by [facility]. They may not have been cleared or approved by the U.S. Food and Drug Administration. The FDA has determined that such clearance or approval is not necessary. The above immunohistochemical/dualISH markers are ordered and reviewed by the Pathologist. INTERPRETATION: A. Gastric antrum, biopsy: Negative for Helicobacter pylori organisms. B. Distal esophagus, biopsy: No evidence of dysplasia. AM:jozef 06/22/2022
[2022-06-20 10:45] VITALS: BP 119/83; BP 124/78; PULSE 85; RESP 16; TEMP 36.6; O2SAT 95
--- NOTE | 2022-06-20 10:46 | OP.EGD_ITS ---
Patient Name: Johann Sears Procedure Date: 06/20/2022 10:25 AM Date of : 1965 Age: 56 Procedure: Upper GI endoscopy Indications: Heartburn, Estrada's esophagus Providers: Daquan Arshad DO Medicines: Monitored Anesthesia Care Patient Profile: This is a 56 year old male. Refer to note in patient chart for documentation of history and physical. Patient has symptoms of chronic heartburn. Complications: No immediate complications. Procedure: Pre-Anesthesia Assessment: - Prior to the procedure, a History and Physical was performed, and patient medications and allergies were reviewed. The patient is competent. The risks and benefits of the procedure and the sedation options and risks were discussed with the patient. All questions were answered and informed consent was obtained. Patient identification and proposed procedure were verified by the physician in the pre-procedure area. Mental Status Examination: alert and oriented. Airway Examination: normal oropharyngeal airway and neck mobility. Respiratory Examination: clear to auscultation. CV Examination: normal. Prophylactic Antibiotics: The patient does not require prophylactic antibiotics. Prior Anticoagulants: The patient has taken no previous anticoagulant or antiplatelet agents. ASA Grade Assessment: II - A patient with mild systemic disease. After reviewing the risks and benefits, the patient was deemed in satisfactory condition to undergo the procedure. The anesthesia plan was to use monitored anesthesia care (MAC). Immediately prior to administration of medications, the patient was re-assessed for adequacy to receive sedatives. The heart rate, respiratory rate, oxygen saturations, blood pressure, adequacy of pulmonary ventilation, and response to care were monitored throughout the procedure. The physical status of the patient was re-assessed after the procedure. After obtaining informed consent, the endoscope was passed under direct vision. Throughout the procedure, the patient's blood pressure, pulse, and oxygen saturations were monitored continuously. The gastroscope was introduced through the mouth, and advanced to the second part of duodenum. The upper GI endoscopy was accomplished without difficulty. The patient tolerated the procedure well. Scope In: 10:31:56 AM Scope Out: 10:39:47 AM Total Procedure Duration Time 0 hours 7 minutes 51 seconds Findings: The Z-line was irregular and was found 38 cm from the incisors. Biopsies were taken with a cold forceps for histology. Verification of patient identification for the specimen was done. Estimated blood loss was minimal. A small hiatal hernia was present. The Brayola capsule with delivery system was introduced through the mouth and advanced into the esophagus, such that the DUMONT pH capsule was positioned 40 cm from the incisors, which was 6 cm proximal to the GE junction. Suction was applied to the well of the DUMONT pH capsule to suck in the adjacent mucosa of the esophagus using the external vacuum pump set at a minimum vacuum pressure of 550 mmHg for 30 seconds. The DUMONT pH capsule was then deployed by depressing the plunger on top of the handle to advance the locking pin into the mucosa, thereby attaching the capsule to the esophagus. The plunger was then rotated a quarter turn clockwise to release the capsule from the delivery system. The delivery system was then withdrawn. Endoscopy was utilized for probe placement and diagnostic evaluation. The scope was reinserted to evaluate placement of the DUMOTN capsule. Visualization showed the DUMONT capsule to be in an appropriate position. Patchy mild inflammation characterized by erythema was found in the gastric antrum. Biopsies were taken with a cold forceps for histology. Biopsies were taken with a cold forceps for histology. Verification of patient identification for the specimen was done. Estimated blood loss was minimal. The second portion of the duodenum was normal. Impression: - Z-line irregular, 38 cm from the incisors. Biopsied. - Small hiatal hernia. - Gastritis. Biopsied. - Normal second portion of the duodenum. - The DUMONT pH capsule was positioned 40 cm from the incisors, which was 6 cm proximal to the GE junction. Recommendation: - Discharge patient to home. - Resume regular diet. - Continue present medications. - Await pathology results. - Repeat upper endoscopy in 1 year for surveillance. Procedure Code(s): --- Professional --- 34907, Esophagogastroduodenoscopy, flexible, transoral; with biopsy, single or multiple CPT copyright 2017 [employer]. All rights reserved. The codes documented in this report are preliminary and upon subway train driver review may be revised to meet current compliance requirements. Daquan Arshad DO 06/20/2022 10:45:59 AM This report has been signed electronically. Number of Addenda: 0 Note Initiated On: 06/20/2022 10:25 AM
--- NOTE | 2022-06-20 10:46 | OP.CCLET_ITS ---
06/20/2022 Victor Hugo Pena Re : Upper GI endoscopy procedure for Johann Sears Dear Becky This procedure was performed on Monday, June 20, 2022. My impressions and recommendations are as follows: Impressions : - Z-line irregular, 38 cm from the incisors. Biopsied. - Small hiatal hernia. - Gastritis. Biopsied. - Normal second portion of the duodenum. - The DUMONT pH capsule was positioned 40 cm from the incisors, which was 6 cm proximal to the GE junction. Recommendations : - Discharge patient to home. - Resume regular diet. - Continue present medications. - Await pathology results. - Repeat upper endoscopy in 1 year for surveillance. My findings are described in the full procedure note, which is enclosed. If I can be of further assistance, please feel free to contact me at . Sincerely, Daquan Arshad, 06/20/2022 10:45:59 AM This report has been signed electronically.
[2022-06-20 10:50] VITALS: BP 124/78; BP 127/91; PULSE 87; RESP 16; O2SAT 96
[2022-06-20 10:55] VITALS: BP 115/75; BP 124/78; PULSE 82; RESP 16; O2SAT 95
[2022-06-20 11:00] VITALS: BP 120/75; BP 124/78; PULSE 85; RESP 16; TEMP 36.8; O2SAT 97
[2022-06-20 11:17] VITALS: BP 124/78
--- NOTE | 2022-07-19 14:03 | HP.PCM_ITS ---
History and Physical Date of Admission: 06/20/22 Study: 48-hour?Boo?pH capsule was placed on esophagus during EGD on 06/20/22 ? Indications for?Boo?pH Study: acid reflux refractory to PPI therapy ? Study Findings?? ? 48-hour overview: acid exposure when upright > supine, longest reflux 10 minutes ? Using data from the worst of the two days, acid exposure time is 5.3%.?Percent acid exposure time?is the single parameter which has been shown to best correlate with endoscopic damage. Normal is <4.4% on the worst day, therefore this result is abnormal.? ? The?DeMeester Score?(normal is <14.72) on the worst of the two days is 17.8 wh ich is abnormal.?The DeMeester Score is a method of adding weights to six common pH measurement parameters, and presenting esophageal acid exposure data as a cumulative score.? ? Symptom Index (SI)?>50% is significant (it indicates that >50% of the observed symptoms were associated with reflux).? In this study, the SI is 57% which is significant. ? Symptom Association Probability (SAP)?helps to determine if there is a true correlation between symptoms and reflux. SAP >95% indicates a likely andres elation.? In this study, the SAP is 100% which?does indicate a true correlation.? ? Interpretation ? Abnormal study; percent acid exposure time and DeMeester scores are abnormal; Symptom Index and Symptom Association Probability are significant Charges/Coding Procedures Gastroenterology CF Procedures [id number]: [id number] Gastroesophageal reflux test
== END 2022-06-20 11:19 | disposition home or self-care (01) ==
LOC: EN 08:59 → AC 08:59
PROVIDERS: PCP Family Medicine; Referring Provider Family Medicine; Visit Provider Internal Medicine Gastroenterology
PROC: 0DJ08ZZ Inspection of Upper Intestinal Tract, Via Natural or Artificial Opening Endoscopic (ICD-10-PCS; CPT 43235; principal; 2022-06-20 10:10)
DX: K29.50 Unspecified chronic gastritis without bleeding (principal); K44.9 Diaphragmatic hernia without obstruction or gangrene; K21.9 Gastro-esophageal reflux disease without esophagitis; Z86.010 Personal history of colon polyps; Z87.19 Personal history of other diseases of the digestive system; Z87.891 Personal history of nicotine dependence; K59.00 Constipation, unspecified
CPT/HCPCS: 43239; 88305; 88341; 88342; J7120; J2405

== ENCOUNTER 2023-03-29 05:29 | Day surgery (SDC) | payer MEDICARE, SELFPAY ==
--- NOTE | 2023-03-29 | ESO_PTH ---
PATIENT: KRYSTLE SAMSON LOC: [facility] U#:[id number] AGE/SX: 57/M ROOM: RE03/29/[address]: Dr. Daquan Arshad DO : 1965 BED: DIS: 03/29/2023 SPEC #: [id number] RECD: 03/29/23 12:54 STATUS: JOHAN NIETO #: [id number] RACHEAL: 03/29/23 00:[address]: Daquan Arshad DEPT: SURGICAL PATHOLOGY RECD BY: Thierno Bowen ENTERED: 03/29/23 12:55 SP TYPE: SCOUT CHRISTIAN DR: Dr. Victor Hugo Pena MD Tissues: A - Esophagus, NOS B - Cecum, NOS C - Gastric mucous membrane D - Sigmoid colon biopsy E - Sigmoid colon biopsy Procedures: Special Stain Group II Surgery Specimen Level IV Alcian Blue/PAS (control) HEADER OPERATION: Colonoscopy, EGD, biopsy PRE-OP DIAGNOSIS: Early satiety, regurgitation of food, GERD, Estrada's esophagus, abdominal pain TISSUE SUBMITTED: A - Distal esophagus biopsy, B - Cecum polyp, C - Hepatic flexure polyp, D - Sigmoid colon biopsy, E - Sigmoid colon polyp MICROSCOPIC DIAGNOSIS A. Distal esophagus, biopsy: Fragments of gastroesophageal mucosa with focal intestinal metaplasia (goblet cell metaplasia), consistent with Estrada's esophagus. Chronic inflammation. Negative for dysplasia. See comment. B. Cecum polyp, biopsy: Tubular adenoma. C. Hepatic flexure polyp, biopsy: Tubular adenoma. D. Sigmoid colon, biopsy: Fragments of colonic mucosa, no pathologic diagnosis. E. Sigmoid colon polyp, biopsy: Tubular adenoma. SJ:rg 04/01/2023 COMMENT A. Alcian blue/PAS stain with matched control is used in the evaluation of the specimen. Immunohistochemistry ([id number]) for P53 and Ki-67 will be performed and results will be reported separately. MICROSCOPIC DESCRIPTION Slides are reviewed. GROSS DESCRIPTION A - Received in fixative is one container labeled with the patient's name and designated distal esophagus. The specimen consists of multiple irregular fragments of light kaba soft tissue that in aggregate measure 0.8 x 0.5 x 0.1 cm. The specimen is totally submitted in one cassette. B - Received in fixative is one container labeled with the patient's name and designated cecum polyp. The specimen consists of one irregular fragment of light kaba soft tissue that measures 0.3 x 0.2 x 0.1 cm. The specimen is totally submitted in one cassette. C - Received in fixative is one container labeled with the patient's name and designated hepatic flexure polyp. The specimen consists of one irregular fragment of light kaba soft tissue that measures 0.3 x 0.3 x 0.1 cm. The specimen is totally submitted in one cassette. D - Received in fixative is one container labeled with the patient's name and designated sigmoid colon biopsy. The specimen consists of multiple irregular fragments of light kaba soft tissue that in aggregate measure 0.8 x 0.3 x 0.1 cm. The specimen is totally submitted in one cassette. E - Received in fixative is one container labeled with the patient's name and designated sigmoid polyp. The specimen consists of one irregular fragment of light kaba soft tissue that measures 0.3 x 0.2 x 0.1 cm. The specimen is totally submitted in one cassette. / SJ:rg 03/29/2023 TC:1 CPT: 16099 x5, 75854
--- NOTE | 2023-03-29 | IMM_PTH ---
PATIENT: KRYSTLE SAMSON LOC: [facility] U#:[id number] AGE/SX: 57/M ROOM: RE03/29/[address]: Dr. Daquan Arshad DO : 1965 BED: DIS: 03/29/2023 SPEC #: [id number] RECD: 04/01/23 13:37 STATUS: JOHAN RERosalina #: [id number] RACHEAL: 03/29/23 00:[address]: Daquan Arshad DEPT: IMMUNOHISTOCHEMISTRY RECD BY: Rubia Chandler ENTERED: 04/01/23 13:38 SP TYPE: IMMUNO OTHR DR: Dr. Victor Hugo Pena MD Tissues: A - Esophageal mucous membrane Procedures: P53 (initial) KI-67 (add) PHYSICIAN & INSTITUTION [place] [id number] SPECIMEN INFORMATION: Tissue Source: A - Distal esophagus Clinical Info: Early satiety, regurgitation of foot, GERD, Estrada's esophagus, abdominal pain Specimen Number: [id number] CPT code: 74576, 16843 METHODOLOGY: Deparaffinized sections of prefer/formalin-fixed tissue or PAP/DQ stained slides are incubated with monoclonal/polyclonal antibodies/oligonucleotide probes. Localization is made via biotin free immunoperoxidase method. Appropriate controls are performed and reacted as expected. Results on target cell population are indicated in the following table: RESULTS: ANTIBODY / CLONE RESULT Block A P53 (DO-7) negative (null pattern) Ki-67 (30-9) positive, low These tests were developed and their performance characteristics determined by [facility]. They may not have been cleared or approved by the U.S. Food and Drug Administration. The FDA has determined that such clearance or approval is not necessary. The above immunohistochemical/dualISH markers are ordered and reviewed by the Pathologist. INTERPRETATION: A. Distal esophagus, biopsy: Negative for dysplasia. GUANAKITO:jozef 04/02/2023
[2023-03-29] MEDS: Lactated Ringers 1,000 ML 15 ML IV (05:56)
[2023-03-29 05:57] VITALS: BP 124/91; PULSE 98; RESP 18; TEMP 36.3; O2SAT 99; BMI 40.3
--- NOTE | 2023-03-29 06:36 | PCM.HP.BLA ---
History and Physical Date of Admission: 03/29/23 Chief Complaint: Acid reflux Details: KRYSTLE SAMSON, is a 56 M who presents to the office today for discussion of EGD performed on 06/20/22 for refractory heartburn. He stopped PPI pantoprazole 40 mg bid since it didn't relieve his heartburn. Has tried and failed lansoprazole and omeprazole too. Taking famotidine OTC daily, needs to take 6-8 pills at a time to relieve his heartburn. Still feels full if he eats much, then he vomits. We tried samples of Linzess 290 mcg, made the bowels move (gave him diarrhea) but didn't help his feeling of fullness. Has early satiety. EGD still positive for Estrada's/negative for dysplasia as it was in 2020. Dumont pH was done--he reports he ate less than usual during that 48 hrs (his MIL had a TIA then); but I don't have that report available for today's visit. He established with us on 06/07/22 for acid reflux since age 15 which has significantly worsened over the years to the point where he is absolutely miserable, as well as early satiety/gastric fullness/vomiting/regugitation.? He worries about the possibility of cancer due to family history of multiple different cancers.? He has been evaluated by general surgeon Dr. Scott who performed EGD and colonoscopy in May 2021; he found a medium size hiatal hernia, mild gastritis on biopsy, Estrada's esophagus but negative for dysplasia; in the colon there were multiple large mouthed diverticula, hyperplastic polyp from the descending colon.? Dr. Scott prescribed omeprazole for GERD and Estrada's however patient discontinued it due to perceived lack of efficacy.? More recently he took pantoprazole but didn't find it effective either. Mr. Samson previously saw an outside record keeper.? Prior gastric emptying study was interpreted as normal.? Patient was tried on metoclopramide by that record keeper without relief of symptoms.? Patient is potentially interested in fundoplication as a last resort.? He and his just hope to find some relief for his very bothersome symptoms.? He is only able to eat small amounts at a time and cannot drink much fluids when he eats or he has significant acid reflux.? He reports acid is refluxing, and that he does not notice any bile.? If he eats too much at once then he will have significant epigastric and retrosternal pain for about 8 hours, then he vomits and gets some relief, he sees undigested food at that time.? He does note that if he has a good bowel movement then it feels like his stomach immediately empties.? He does tend to have significant constipation.? He feels if he could drink more fluids then he would have less constipation, but he cannot tolerate a larger volume of fluids.? Unable to drink enough water in order to take Metamucil.? He is having to use a glycerin suppository of majority of days in order to have a bowel movement.? He quit drinking any soda pop.? He limits alcohol due to the epigastric pain causes.? He almost always has retrosternal burning pain.? He denies any difficulty swallowing foods or liquids or pills.? No relief of his acid reflux with [id number]-[id number] medications such as Pepto-Bismol, Tuyet-[place] or Tums.? He takes up to 8 OTC famotidine but only gets minimal relief with that.? Worse symptoms when lying down. 01/04/22 Upper GI w/BA Swallow IMPRESSION: Normal air-contrast esophagram and upper GI series. 06/20/22 EGD Impression: ? - Z-line irregular, 38 cm from the incisors. ? Biopsied. ? - Small hiatal hernia. ? - Gastritis. Biopsied. ? - Normal second portion of the duodenum. ? - The DUMONT pH capsule was positioned 40 cm ? from the incisors, which was 6 cm proximal to ? the GE junction. MICROSCOPIC DIAGNOSIS A. Gastric antrum, biopsy: Chronic gastritis. See comment. Negative H pylori B. Distal esophagus, biopsy: Gastroesophageal junctional mucosa with chronic inflammation. 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 No evidence of dysplasia. See comment ROS Const Constitutional: No fatigue ENT ENT: No difficulty swallowing Gastro GI: Positive for diarrhea, heartburn, nausea/dyspepsia and vomiting; No abdominal pain, belching, bloating, change in bowel habits, change in stool character, coffee ground emesis, constipation, cramping, difficulty swallowing, feeling full early, excessive flatus, incontinent of stools, Vomiting blood/hematemesis, Blood in stool, loose stools, Black,tarry stools, pain with swallowing or other Musc Musculoskeletal: No joint pain Skin Skin: No yellowing of the eye or itchy eyes Psych Psychiatric: Positive for anxiety and No depression Endo Endocrine: No fatigue Aller/Imm Allergy/Immunologic: No itchy eyes Duane/Lymp Hematologic/Lymphatic: No easy bleeding or easy bruising Exam Const General: cooperative and anxious Nutritional Appearance: obese Orientation: alert, awake and oriented x3 Quality Reporting Tobacco Screening ([facility] 138) Smoking Status: Former smoker Assessment and Plan Assessment and Plan (1) Early satiety: Status: Acute Plan: 56 yr old male with GERD, Estrada's esophagus w/o dysplasia, early satiety, regurgitation. We discussed his EGD findings. He is not currently taking PPI since he doesn't find it effective at controlling his reflux. We can revisit the need for PPI later; w/u is still ongoing. I will call him once we track down the Dumont pH report. We will update his gastric emptying study. Azithromycin 250 mg daily x 7 days to see if that helps with early satiety/gastric fullness, which would indicated impaired motility. f/u is scheduled. I will keep Dr Scott updated on pt's case. (2) Regurgitation of food: Status: Acute Plan: see above (3) GERD (gastroesophageal reflux disease): Status: Acute Plan: see above (4) Estrada's esophagus: Status: Acute Plan: see above Orders: Orders Gastric Emptying Study Today R68.81 - Early satiety Medications: New azithromycin 250 mg PO DAILY 7 days 7 tabs 0RF
[2023-03-29 07:03] VITALS: BP 109/71; BP 124/91; PULSE 85; RESP 18; TEMP 37; O2SAT 89
--- NOTE | 2023-03-29 07:04 | OP.CCLET_ITS ---
03/29/2023 Victor Hugo Pena Re : Upper GI endoscopy procedure for Johann Seras Dear Becky This procedure was performed on Wednesday, March 29, 2023. My impressions and recommendations are as follows: Impressions : - Esophageal mucosal changes secondary to established Estrada's disease. Biopsied. - Small hiatal hernia. - No gross lesions in the entire stomach. Recommendations : - Discharge patient to home. - Resume previous diet. - Continue present medications. - Await pathology results. - Repeat upper endoscopy in 1 year. My findings are described in the full procedure note, which is enclosed. If I can be of further assistance, please feel free to contact me at . Sincerely, Daquan Arshad, 03/29/2023 7:03:53 AM This report has been signed electronically.
--- NOTE | 2023-03-29 07:04 | OP.EGD_ITS ---
Patient Name: Johann Sears Procedure Date: 03/29/2023 6:18 AM Date of : 1965 Age: 57 Procedure: Upper GI endoscopy Indications: Estrada's esophagus Providers: Daquan Arshad DO Referring MD: Victor Hugo Pena Medicines: Monitored Anesthesia Care Patient Profile: This is a 57 year old male. Refer to note in patient chart for documentation of history and physical. Patient has symptoms of chronic heartburn. Complications: No immediate complications. Procedure: Pre-Anesthesia Assessment: - Prior to the procedure, a History and Physical was performed, and patient medications and allergies were reviewed. The risks and benefits of the procedure and the sedation options and risks were discussed with the patient. All questions were answered and informed consent was obtained. Patient identification and proposed procedure were verified by the physician. Mental Status Examination: normal. CV Examination: normal. Prophylactic Antibiotics: The patient does not require prophylactic antibiotics. Prior Anticoagulants: The patient has taken no anticoagulant or antiplatelet agents. ASA Grade Assessment: II - A patient with mild systemic disease. After reviewing the risks and benefits, the patient was deemed in satisfactory condition to undergo the procedure. The anesthesia plan was to use monitored anesthesia care (MAC). Immediately prior to administration of medications, the patient was re-assessed for adequacy to receive sedatives. The heart rate, respiratory rate, oxygen saturations, blood pressure, adequacy of pulmonary ventilation, and response to care were monitored throughout the procedure. The physical status of the patient was re-assessed after the procedure. After obtaining informed consent, the endoscope was passed under direct vision. Throughout the procedure, the patient's blood pressure, pulse, and oxygen saturations were monitored continuously. The colonoscope was introduced through the mouth, and advanced to the second part of duodenum. The upper GI endoscopy was accomplished without difficulty. The patient tolerated the procedure well. Scope In: 6:41:50 AM Scope Out: 6:45:07 AM Total Procedure Duration Time 0 hours 3 minutes 17 seconds Findings: There were esophageal mucosal changes secondary to established Estrada's disease present in the lower third of the esophagus. The maximum longitudinal extent of these mucosal changes was 2 cm in length. Mucosa was biopsied with a cold forceps for histology in a targeted manner at intervals of 1 cm in the lower third of the esophagus. One specimen bottle was sent to pathology. Verification of patient identification for the specimen was done. Estimated blood loss was minimal. A small hiatal hernia was present. No gross lesions were noted in the entire examined stomach. The exam of the duodenum was otherwise normal. Impression: - Esophageal mucosal changes secondary to established Estrada's disease. Biopsied. - Small hiatal hernia. - No gross lesions in the entire stomach. Recommendation: - Discharge patient to home. - Resume previous diet. - Continue present medications. - Await pathology results. - Repeat upper endoscopy in 1 year. Procedure Code(s): --- Professional --- 26413, Esophagogastroduodenoscopy, flexible, transoral; with biopsy, single or multiple CPT copyright 2021 [employer]. All rights reserved. The codes documented in this report are preliminary and upon t rail turner review may be revised to meet current compliance requirements. Daquan Arshad DO 03/29/2023 7:03:53 AM This report has been signed electronically. Number of Addenda: 0 Note Initiated On: 03/29/2023 6:18 AM
[2023-03-29 07:05] VITALS: BP 124/91; BP 87/65; PULSE 83; RESP 16; O2SAT 96
--- NOTE | 2023-03-29 07:08 | OP.CCLET_ITS ---
03/29/2023 Victor Hugo Pena Re : Colonoscopy procedure for Johann Sears Dear Becky This procedure was performed on Wednesday, March 29, 2023. My impressions and recommendations are as follows: Impressions : - Diverticulosis in the recto-sigmoid colon and in the sigmoid colon. - Segmental mild inflammation was found in the sigmoid colon secondary to colitis. Biopsied. - Three 1 to 2 mm polyps in the sigmoid colon, at the hepatic flexure and in the cecum, removed with a cold snare. Resected and retrieved. - Non-bleeding internal hemorrhoids. Recommendations : - Repeat colonoscopy in 5 years for surveillance. - Continue present medications. My findings are described in the full procedure note, which is enclosed. If I can be of further assistance, please feel free to contact me at . Sincerely, Daquan Friend, 03/29/2023 7:07:42 AM This report has been signed electronically.
--- NOTE | 2023-03-29 07:08 | OP.COLON_ITS ---
Patient Name: Johann Sears Procedure Date: 03/29/2023 6:45 AM Date of : 1965 Age: 57 Procedure: Colonoscopy Indications: Screening for colorectal malignant neoplasm Providers: Daquan Arshad DO Referring MD: Victor Hugo Pena Medicines: Monitored Anesthesia Care Patient Profile: This is a 57 year old male. Refer to note in patient chart for documentation of history and physical. Patient has symptoms of chronic heartburn. Last Colonoscopy: none. The patient's first colonoscopy is today. Complications: No immediate complications. Procedure: Pre-Anesthesia Assessment: - Prior to the procedure, a History and Physical was performed, and patient medications and allergies were reviewed. The risks and benefits of the procedure and the sedation options and risks were discussed with the patient. All questions were answered and informed consent was obtained. Patient identification and proposed procedure were verified by the physician. Mental Status Examination: normal. CV Examination: normal. Prophylactic Antibiotics: The patient does not require prophylactic antibiotics. Prior Anticoagulants: The patient has taken no anticoagulant or antiplatelet agents. ASA Grade Assessment: II - A patient with mild systemic disease. After reviewing the risks and benefits, the patient was deemed in satisfactory condition to undergo the procedure. The anesthesia plan was to use monitored anesthesia care (MAC). Immediately prior to administration of medications, the patient was re-assessed for adequacy to receive sedatives. The heart rate, respiratory rate, oxygen saturations, blood pressure, adequacy of pulmonary ventilation, and response to care were monitored throughout the procedure. The physical status of the patient was re-assessed after the procedure. After I obtained informed consent, the scope was passed under direct vision. Throughout the procedure, the patient's blood pressure, pulse, and oxygen saturations were monitored continuously. The colonoscope was introduced through the anus and advanced to the cecum, identified by appendiceal orifice and ileocecal valve. The colonoscopy was performed without difficulty. The patient tolerated the procedure well. The quality of the bowel preparation was adequate. The terminal ileum, ileocecal valve, appendiceal orifice, and rectum were photographed. Scope In: 6:46:58 AM Scope Withdrawal Time 0 hours 8 minutes 46 seconds Scope Out: 6:57:26 AM Total Procedure Duration Time 0 hours 10 minutes 28 seconds Findings: The perianal and digital rectal examinations were normal. Multiple small and large-mouthed diverticula were found in the recto-sigmoid colon and sigmoid colon. Segmental mild inflammation characterized by congestion (edema), erosions and erythema was found in the sigmoid colon. Biopsies were taken with a cold forceps for histology. Verification of patient identification for the specimen was done. Estimated blood loss was minimal. Three sessile polyps were found in the sigmoid colon, hepatic flexure and cecum. The polyps were 1 to 2 mm in size. These polyps were removed with a cold snare. Resection and retrieval were complete. Verification of patient identification for the specimen was done. Estimated blood loss was minimal. Non-bleeding internal hemorrhoids were found during retroflexion. The hemorrhoids were mild and Grade II (internal hemorrhoids that prolapse but reduce spontaneously). Impression: - Diverticulosis in the recto-sigmoid colon and in the sigmoid colon. - Segmental mild inflammation was found in the sigmoid colon secondary to colitis. Biopsied. - Three 1 to 2 mm polyps in the sigmoid colon, at the hepatic flexure and in the cecum, removed with a cold snare. Resected and retrieved. - Non-bleeding internal hemorrhoids. Recommendation: - Repeat colonoscopy in 5 years for surveillance. - Continue present medications. Procedure Code(s): --- Professional --- 64981, Colonoscopy, flexible; with removal of tumor(s), polyp(s), or other lesion(s) by snare technique 86840, 59, Colonoscopy, flexible; with biopsy, single or multiple CPT copyright 2021 [employer]. All rights reserved. The codes documented in this report are preliminary and upon plan checker review may be revised to meet current compliance requirements. Daquan Arshad DO 03/29/2023 7:07:42 AM This report has been signed electronically. Number of Addenda: 0 Note Initiated On: 03/29/2023 6:45 AM
[2023-03-29 07:10] VITALS: BP 114/89; BP 124/91; PULSE 78; RESP 18; O2SAT 93
[2023-03-29 07:14] VITALS: BP 124/91; BP 126/88; PULSE 82; RESP 16; TEMP 36.2; O2SAT 96
[2023-03-29 07:31] VITALS: BP 124/91
== END 2023-03-29 07:41 | disposition home or self-care (01) ==
LOC: EN 05:31 → AC 05:32
PROVIDERS: PCP Family Medicine; Referring Provider Family Medicine; Visit Provider Internal Medicine Gastroenterology
PROC: 0DJD8ZZ Inspection of Lower Intestinal Tract, Via Natural or Artificial Opening Endoscopic (ICD-10-PCS; CPT 45378; principal; 2023-03-29 06:25)
DX: Z12.11 Encounter for screening for malignant neoplasm of colon (principal); F31.9 Bipolar disorder, unspecified; D12.0 Benign neoplasm of cecum; D12.3 Benign neoplasm of transverse colon; D12.5 Benign neoplasm of sigmoid colon; K64.1 Second degree hemorrhoids; K57.30 Diverticulosis of large intestine without perforation or abscess without bleeding; K52.9 Noninfective gastroenteritis and colitis, unspecified; K22.70 Barrett's esophagus without dysplasia; K44.9 Diaphragmatic hernia without obstruction or gangrene; K21.00 Gastro-esophageal reflux disease with esophagitis, without bleeding; I10 Essential (primary) hypertension; E78.00 Pure hypercholesterolemia, unspecified; E03.9 Hypothyroidism, unspecified; F41.9 Anxiety disorder, unspecified; Z90.49 Acquired absence of other specified parts of digestive tract; Z79.899 Other long term (current) drug therapy; Z86.010 Personal history of colon polyps; Z87.891 Personal history of nicotine dependence; Z83.71 Family history of colonic polyps; Z80.0 Family history of malignant neoplasm of digestive organs
CPT/HCPCS: 45385; 45380; 43239; 88305; 88313; 88341; 88342; J7120; J2405

== ENCOUNTER 2024-05-27 10:31 | Day surgery (SDC) | payer MEDICARE, SELFPAY ==
[2024-05-27] VITALS (8 sets, daily range): BP systolic 108–122; BP diastolic 72–80; PULSE 71–84; RESP 14–20; TEMP 36.3–36.7; O2SAT 95–99; BMI 41.5
== END 2024-05-27 12:17 | disposition home or self-care (01) ==
LOC: EN 10:33 → AC 10:39
PROVIDERS: PCP Family Medicine; Referring Provider Family Medicine; Visit Provider Internal Medicine Gastroenterology
PROC: 0DJ08ZZ Inspection of Upper Intestinal Tract, Via Natural or Artificial Opening Endoscopic (ICD-10-PCS; CPT 43235; principal; 2024-05-27 11:25)
DX: K22.70 Barrett's esophagus without dysplasia (principal); K21.00 Gastro-esophageal reflux disease with esophagitis, without bleeding; R68.81 Early satiety; E66.9 Obesity, unspecified; E78.00 Pure hypercholesterolemia, unspecified; I10 Essential (primary) hypertension; Z87.891 Personal history of nicotine dependence; Z79.899 Other long term (current) drug therapy
CPT/HCPCS: 43239; 88305; 88312; 88341; 88342; A4216; J2405